=== PATIENT | female | born 1975 | race Caucasian/White ===

== ENCOUNTER 2018-01-24 15:36 | Emergency (ER) | payer OTHER ==
[2018-01-24 15:49] VITALS: BP 133/82
--- NOTE | 2018-01-24 16:07 | UC ---
Respiratory Complaint HPI - HPI Summary HPI Summary: c/o nasal congestion and sneezing along with facial pressure and malaise for a week, c/o having to switch from hot to very cold environment. - History of Current Complaint Chief Complaint: UCGeneralIllness Stated Complaint: SINUS COMPLAINT Time Seen by Provider: 01/24/18 15:51 Hx Obtained From: Patient Hx Last Menstrual Period: 1 month ago ?: No Onset/Duration: Sudden Onset, Lasting Days Timing: Constant Severity Initially: Mild Severity Currently: Moderate Pain Intensity: 6 Aggravating Factors: Allergens Associated Signs And Symptoms: Positive: Nasal Congestion, Sinus Discomfort Related History: Seasonal Allergies - Risk Factors Pulmonary Embolism Risk Factors: Negative Cardiac Risk Factors: Negative Pseudomonas Risk Factors: Negative Tuberculosis Risk Factors: Negative - Allergies/Home Medications Allergies/Adverse Reactions: Allergies Allergy/AdvReac Type Severity Reaction Status Date / Time No Known Allergies Allergy Verified 06/16/16 14:19 PMH/Surg Hx/FS Hx/Imm Hx Previously Healthy: Yes - Surgical History Surgical History: Yes Surgery Procedure, Year, and Place: Hysterectomy, 2013, [place] - Family History Known Family History: Positive: None, Other - postive [facility] for URI - Social History Alcohol Use: None Substance Use Type: None Smoking Status (MU): Never Smoked Tobacco Household Exposure Type: Cigarettes - Immunization History Most Recent Influenza Vaccination: April 2016 Review of Systems ENT: Nasal Discharge, Sinus Congestion All Other Systems Reviewed And Are Negative: Yes Physical Exam Triage Information Reviewed: Yes Appearance: Well-Appearing, No Pain Distress, Obese Vital Signs: Initial Vital Signs Temp 98.8 F 01/24/18 15:46 Pulse 85 01/24/18 15:46 Resp 16 01/24/18 15:46 BP 133/82 01/24/18 15:46 Pulse Ox 99 01/24/18 15:46 Vital Signs Reviewed: Yes Eyes: Positive: Conjunctiva Clear ENT: Positive: Hearing grossly normal, Pharynx normal, Nasal drainage, TMs normal, Uvula midline Neck: Positive: Supple, Nontender, No Lymphadenopathy Respiratory: Positive: Chest non-tender, Lungs clear, Normal breath sounds, No respiratory distress Cardiovascular: Positive: RRR, No Murmur, Pulses Normal, Brisk Capillary Refill Abdomen Description: Positive: Nontender UC Diagnostic Evaluation - Laboratory O2 Sat by Pulse Oximetry: 99 Respiratory Course/Dx - Course Course Of Treatment: History of allergic rhinitis, to start nasacort. Sinus congestion due to viral infection, prescribed amoxil "wait and see" if symptoms worsen or develops fever and chills. - Differential Dx/Diagnosis Provider Diagnoses: Acute rhinosinusitis. Elevated BP without diagnosis of HTN Discharge - Sign-Out/Discharge Documenting (check all that apply): Discharge/Admit/Transfer - Discharge Plan Condition: Stable Disposition: HOME Prescriptions: Amoxicillin PO (*) [Amoxicillin 875 MG (*)] 875 mg PO BID 10 Days #20 tab Triamcinolone NASAL SPRAY* [Nasacort AQ Nasal [place]*] 1 puff NASAL BID #1 puff Patient Education Materials: Sinusitis (ED), Allergic Rhinitis (ED) Referrals: [facility] [Outside] No Primary Care Phys,NOPCP [Primary Care Provider] - Additional Instructions: Wait and see antibiotic therapy. If you develop a recurrence or fever, chills and worsening of sinus pain start Amoxil Use nasal toileting with saline and nasacort twice a day - Billing Disposition and Condition Condition: STABLE Disposition: Home
== END 2018-01-24 16:07 | disposition home or self-care (01) ==
LOC: UCCORT 15:36
DX: J01.90 Acute sinusitis, unspecified (principal); R03.0 Elevated blood-pressure reading, without diagnosis of hypertension; Z77.22 Contact with and (suspected) exposure to environmental tobacco smoke (acute) (chronic)
CPT/HCPCS: 99212; G0463

== ENCOUNTER 2019-08-22 09:32 | Emergency (ER) | payer OTHER ==
[2019-08-22 09:46] VITALS: BP 105/68
--- NOTE | 2019-08-22 09:57 | UC ---
Throat Pain/Nasal Ramsey HPI - HPI Summary HPI Summary: sinus pain / pressure x 1 day cough , pnd, sore throat, fever, chills , body aches, sudden onset, severe symptoms, not better with otc meds, - History of Current Complaint Chief Complaint: UCGeneralIllness Stated Complaint: SINUSES/BODY ACHES/CHEST CONGESTION Time Seen by Provider: 08/22/19 09:48 Hx Obtained From: Patient Hx Last Menstrual Period: 1 month ago ?: No Onset/Duration: Gradual Onset, Lasting Days - 1, Still Present Severity: Severe Pain Intensity: 6 Cough: Nonproductive Associated Signs & Symptoms: Positive: Sinus Discomfort, Nasal Discharge, Fever. Negative: Vomiting, Rash - Allergies/Home Medications Allergies/Adverse Reactions: Allergies Allergy/AdvReac Type Severity Reaction Status Date / Time No Known Allergies Allergy Verified 08/22/19 09:46 Home Medications: Home Medications Ibuprofen/Pseudoephedrine HCl [Advil Cold & Sinus] 1 tab PO Q6HR PRN 08/22/19 [ History Confirmed 08/22/19] guaiFENesin [Mucinex] 600 mg PO BID PRN 08/22/19 [History Confirmed 08/22/19] PMH/Surg Hx/FS Hx/Imm Hx Previously Healthy: Yes - Surgical History Surgical History: Yes Surgery Procedure, Year, and Place: Hysterectomy, 2013, [place] - Family History Known Family History: Positive: None, Other - postive [facility] for URI - Social History Alcohol Use: None Substance Use Type: None Smoking Status (MU): Never Smoked Tobacco Household Exposure Type: Cigarettes - Immunization History Most Recent Influenza Vaccination: April 2016 Review of Systems All Other Systems Reviewed And Are Negative: Yes Is Patient Immunocompromised?: No Physical Exam Triage Information Reviewed: Yes Appearance: Well-Appearing, No Pain Distress, Well-Nourished Vital Signs: Initial Vital Signs Temp 97.7 F 08/22/19 09:41 Pulse 102 08/22/19 09:41 Resp 16 08/22/19 09:41 BP 105/68 08/22/19 09:41 Pulse Ox 97 08/22/19 09:41 Vital Signs Reviewed: Yes Eye Exam: Normal Eyes: Positive: Conjunctiva Clear ENT: Positive: Normal ENT inspection, Hearing grossly normal, Pharynx normal Neck exam: Normal Neck: Positive: Supple, Nontender, No Lymphadenopathy Respiratory: Positive: Chest non-tender, Lungs clear, Normal breath sounds Cardiovascular: Positive: Tachycardia Abdominal Exam: Normal Skin Exam: Normal Throat Pain/Nasal Course/Dx - Differential Dx/Diagnosis Provider Diagnosis: Viral illness Discharge ED - Sign-Out/Discharge Documenting (check all that apply): Patient Departure All imaging exams completed and their final reports reviewed: No Studies - Discharge Plan Condition: Stable Disposition: HOME Patient Education Materials: Viral Syndrome (ED) Forms: *Work Release Referrals: No Primary Care Phys,NOPCP [Primary Care Provider] - If Needed Additional Instructions: ? Flu no need for testing or antiviral tx at this time cont. with rest , increase fluid, take Tylenol / Ibuprofen as needed for pain / fever follow up as needed - Billing Disposition and Condition Condition: STABLE Disposition: Home
== END 2019-08-22 09:58 | disposition home or self-care (01) ==
LOC: UCCORT 09:32
DX: B34.9 Viral infection, unspecified (principal); R09.82 Postnasal drip; R05 Cough; J02.9 Acute pharyngitis, unspecified; R09.89 Other specified symptoms and signs involving the circulatory and respiratory systems
CPT/HCPCS: 99211; G0463

== ENCOUNTER 2019-09-05 11:31 | Emergency (ER) | payer OTHER ==
[2019-09-05 12:28] VITALS: BP 137/99
--- NOTE | 2019-09-05 12:32 | UC ---
Throat Pain/Nasal Ramsey HPI - HPI Summary HPI Summary: 44 yo female presents with sinus symptoms. She tells me that about a month ago she had the flu - is feeling better as far as her fever, fatigue, and body aches. Over the last 2 weeks has had worsening sinus pain/pressure/congestion with wheezing and dry cough. She does not smoke. Has been taking mucinex and OTC cold medication with mild intermittent relief. Denies fever, chills, SOB, chest pain,n/v - History of Current Complaint Chief Complaint: UCRespiratory Stated Complaint: SINUSES/COUGH Time Seen by Provider: 09/05/19 12:31 Hx Obtained From: Patient Hx Last Menstrual Period: 1 month ago Onset/Duration: Gradual Onset Severity: Moderate Pain Intensity: 7 Pain Scale Used: 0-10 Numeric - Allergies/Home Medications Allergies/Adverse Reactions: Allergies Allergy/AdvReac Type Severity Reaction Status Date / Time No Known Allergies Allergy Verified 09/05/19 12:26 PMH/Surg Hx/FS Hx/Imm Hx - Additional Past Medical History Additional PMH: None - Surgical History Surgical History: Yes Surgery Procedure, Year, and Place: Hysterectomy, 2013, [place] - Family History Known Family History: Positive: None, Other - postive [facility] for URI - Social History Occupation: Employed Full-time Lives: With Family Alcohol Use: Rare Substance Use Type: None Smoking Status (MU): Never Smoked Tobacco Household Exposure Type: Cigarettes - Immunization History Most Recent Influenza Vaccination: April 2016 Review of Systems All Other Systems Reviewed And Are Negative: No Constitutional: Positive: Negative Skin: Positive: Negative Eyes: Positive: Negative ENT: Positive: Nasal Discharge, Sinus Congestion, Sinus Pain/Tenderness Respiratory: Positive: Cough Cardiovascular: Positive: Negative Gastrointestinal: Positive: Negative Neurological/Mental Status: Positive: Negative Psychological: Positive: Negative Physical Exam - Summary Physical Exam Summary: GENERAL: NAD. WDWN. No pain distress. SKIN: No rashes, sores, lesions, or open wounds. HEENT: Head: AT/NC Eyes: EOM intact. Conjunctiva clear without inflammation or discharge. Ears: Hearing grossly normal. TMs intact, no bulging, erythema, or edema. Nose: Nasal mucosa mildly swollen and erythematous with yellow/ clear discharge. TTP maxillary and frontal sinus. Positive post nasal drip Throat: Posterior oropharynx without exudates, erythema, or tonsillar enlargement. Uvula midline. NECK: Supple. Nontender. No lymphadenopathy. CHEST: Scant wheezing throughout. No accessory muscle use. Breathing comfortably and in no distress. CV: RRR. Pulses intact. NEURO: Alert. PSYCH: Age appropriate behavior. Triage Information Reviewed: Yes Vital Signs: Initial Vital Signs Temp 97.8 F 09/05/19 12:27 Pulse 81 09/05/19 12:27 Resp 16 09/05/19 12:27 BP 137/99 09/05/19 12:27 Pulse Ox 100 09/05/19 12:27 Vital Signs Reviewed: Yes Throat Pain/Nasal Course/Dx - Course Course Of Treatment: Sinusitis - Differential Dx/Diagnosis Provider Diagnosis: Sinusitis Discharge ED - Sign-Out/Discharge Documenting (check all that apply): Patient Departure All imaging exams completed and their final reports reviewed: No Studies - Discharge Plan Condition: Stable Disposition: HOME Prescriptions: Albuterol HFA INHALER* [Ventolin HFA Inhaler*] 1 - 2 puff INH Q6H PRN #1 mdi PRN Reason: Sob/Wheezing Amoxicillin/Clavulanate TAB* [Augmentin TAB 875*] 875 mg PO BID #14 tab Patient Education Materials: Sinusitis (ED) Referrals: No Primary Care Phys,NOPCP [Primary Care Provider] - Additional Instructions: If you develop a fever, shortness of breath, chest pain, new or worsening symptoms - please call your PCP or go to the ED immediately. Your blood pressure was high at todays visit. Please see your primary provider within 4 weeks for recheck and re-evaluation. - Billing Disposition and Condition Condition: STABLE Disposition: Home
== END 2019-09-05 12:43 | disposition home or self-care (01) ==
LOC: UCCORT 11:31
DX: J32.9 Chronic sinusitis, unspecified (principal)
CPT/HCPCS: 99212; G0463